=== PATIENT | female | born 2000 | race Caucasian/White ===

== ENCOUNTER → 2021-02-12 | Outpatient (CLI) | payer OTHER ==
[~2021-02-12] MED LIST: PRENATAL VITAM1 EAC3 PO; VALTREX500 MG PO
== END ==
LOC: EXRD 10:15
DX: R10.9 Unspecified abdominal pain (principal)
CPT/HCPCS: 76700

== ENCOUNTER 2021-09-25 12:04 | Emergency (ER) | payer OTHER ==
[2021-09-25 12:59] LABS: RED BLOOD COUNT 4.65 M/UL (4.00-5.10); WHITE BLOOD COUNT 3.2 K/UL (4.5-11.0)
[2021-09-25 13:25] LABS: BUN/CREATININE RATIO 16 (0-10)
[2021-09-25] MEDS ORDERED: ZOFRAN ODT 4 MG4 MG SL (15:05)
== END 2021-09-25 15:26 | disposition home or self-care (01) ==
LOC: ER1 12:04
PROVIDERS: Physician Assistant
DX: E86.0 Dehydration (principal); R11.2 Nausea with vomiting, unspecified; R10.9 Unspecified abdominal pain; F17.290 Nicotine dependence, other tobacco product, uncomplicated
CPT/HCPCS: 80053; 81001; 83690; 84703; 85025; 87086; 93005; 99284

== ENCOUNTER 2021-09-28 12:03 | Emergency (ER) | payer OTHER ==
[~2021-09-28 12:03] MED LIST changes: +ZOFRAN ODT 4 MG4 MG SL
[2021-09-28 14:45] LABS: HEMOGLOBIN 12.9 gm/dl (12.3-15.3); RED BLOOD COUNT 4.4 M/UL (4.00-5.10); WHITE BLOOD COUNT 2.5 K/UL (4.5-11.0)
[2021-09-28 15:14] LABS: BUN/CREATININE RATIO 7 (0-10)
== END 2021-09-28 16:50 | disposition home or self-care (01) ==
LOC: ER1 12:03
PROVIDERS: Emergency Medicine
DX: U07.1 COVID-19 (principal); F17.290 Nicotine dependence, other tobacco product, uncomplicated
CPT/HCPCS: 0240U; 70491; 80048; 84439; 84443; 85025; 87081; 87880; 99285; Q9967

== ENCOUNTER → 2022-03-31 | Outpatient (CLI) | payer OTHER | LOC: NM 08:59 | DX: R10.11 Right upper quadrant pain (principal) | CPT/HCPCS: 78227; A9537 ==